=== PATIENT | female | born 1930 | race Caucasian/White ===

== ENCOUNTER 2016-08-28 11:04 | Inpatient (IN) | payer OTHER ==
[~2016-08-28] VITALS: Ht 154.9 cm; Wt 61.2 kg
[2016-08-28 11:04] VITALS: BP_SYST 196
[2016-08-28 11:30] LABS: BASOPHILS # (AUTO) 0.1 K/uL (0.0-0.2); EOSINOPHILS # (AUTO) 0.1 K/uL (0.0-0.4); HEMOGLOBIN 11.9 g/dL (12.0-16.0); MEAN CORPUSCULAR HGB CONC 34 % (32-36); WHITE BLOOD COUNT (AUTO) 8.4 K/uL (4.8-10.8)
[2016-08-28 11:33] LABS: BASOPHILS % (AUTO) 0.7 % (0.0-2.0); EOSINOPHILS % (AUTO) 0.6 % (0.0-4.0); HEMATOCRIT 35.6 % (36-48); LYMPHOCYTES % (AUTO) 23.8 % (20.5-51.5); MEAN CORPUSCULAR HEMOGLOBIN 31 pg (27-31); MEAN CORPUSCULAR VOLUME 91 fL (79.0-98.0); MONOCYTES # (AUTO) 0.4 K/uL (0.0-1.0); MONOCYTES % (AUTO) 4.5 % (1.7-9.3); NEUTROPHILS # (AUTO) 5.8 K/uL (1.8-7.7); NEUTROPHILS % (AUTO) 70.4 % (40.0-70.0); PLATELET COUNT (AUTO) 302 K/uL (130-430); RED BLOOD CELL COUNT(AUTO) 3.91 MIL/uL (4.2-6.2); RED CELL DISTRIBUTION WIDTH 13.3 % (9.0-15.0)
[2016-08-28 11:37] LABS: ANION GAP 5 (5-15); CALCIUM 9.6 mg/dL (8.4-11.0); CHLORIDE 110 mmol/L (98-107); CREATININE 0.73 mg/dL (0.55-1.30); GLUCOSE 139 mg/dL (70-99); POTASSIUM 4.1 mmol/L (3.5-5.1); SODIUM SERUM 144 mmol/L (136-145); UREA NITROGEN, BLOOD 14 mg/dL (8-21)
[2016-08-28 11:39] LABS: PROTHROMBIN TIME 10.8 SECS (9.5-12.5)
[2016-08-28 11:42] LABS: ALANINE AMINOTRANSFERASE 22 U/L (12-78); ALBUMIN 4.1 g/dL (3.4-4.8); ASPARTATE AMINOTRANSFERASE 14 U/L (10-37); CREATINE KINASE, TOTAL 57 U/L (26-192); SALICYLATE 1 mg/dL (3-30); TOTAL BILIRUBIN 0.4 mg/dL (0.0-1.0); TOTAL PROTEIN, SERUM 7.7 g/dL (6.4-8.3)
[2016-08-28 11:43] LABS: ACETAMINOPHEN < 1 ug/mL (1-30); ALCOHOL, BLOOD < 3 mg/dL (<10)
[2016-08-28] MEDS ORDERED: ASPIRIN 81 MG TAB.CHEW PO ONE (12:00)
[2016-08-28] MEDS ORDERED: ACETAMINOPHEN 500 MG TABLET PO ONE (12:15)
[2016-08-28] MEDS ORDERED: VALS40TA11 PO (12:18)
[2016-08-28] MEDS ORDERED: AMAN100C16 PO (12:18)
[2016-08-28] MEDS ORDERED: ACETAMINOPHEN 500 MG TABLET ONE (12:21)
[2016-08-28 12:22] LABS: BILIRUBIN,URINE NEGATIVE (NEGATIVE); CLARITY/URINE CLEAR (CLEAR); COLOR,URINE YELLOW (YELLOW); GLUCOSE,URINE NEGATIVE (NEGATIVE); KETONES,URINE NEGATIVE (NEGATIVE); LEUKOCYTE ESTERASE ,URINE 1+ (NEGATIVE); NITRITE, URINE NEGATIVE (NEGATIVE); PROTEIN URINE NEGATIVE (NEGATIVE); UROBILINOGEN,URINE 0.2 (0.2-1.0)
[2016-08-28 12:25] LABS: BLOOD, URINE TRACE (NEGATIVE)
[2016-08-28 12:30] LABS: RBC,URINE 0-3 /HPF (0-3)
[2016-08-28 12:31] LABS: BACTERIA,URINE FEW /HPF (None Seen); MUCUS,URINE 1+ /LPF (None Seen)
[2016-08-28] MEDS ORDERED: ALPRAZolam 0.25 MG TABLET ONE (13:43)
[2016-08-28] MEDS ORDERED: ALPRAZolam 0.25 MG TABLET PO ONE (13:45)
[2016-08-28] MEDS ORDERED: cloNIDine HCL 0.1 MG TABLET PO ONE (13:45)
[2016-08-28 13:51] VITALS: BP_SYST 152
[2016-08-28 14:01] VITALS: BP_SYST 129
[2016-08-28] MEDS ORDERED: VALSARTAN 80 MG TABLET (DIOVAN) PO SCH (15:15)
[2016-08-28] MEDS ORDERED: LEVOFLOXACIN 500 MG/D5W 100 ML IV ONE (15:15)
[2016-08-28] MEDS ORDERED: ALPRAZolam 0.25 MG TABLET PO PRN (15:30)
[2016-08-28] MEDS ORDERED: KETOROLAC TROMETHAMINE 15 MG VIAL IVP PRN (15:30)
[2016-08-28] MEDS ORDERED: cloNIDine HCL 0.1 MG TABLET PO PRN (15:30)
[2016-08-28] MEDS ORDERED: ACETAMINOPHEN 325 MG TABLET PO PRN (15:45)
[2016-08-28] MEDS ORDERED: cefTRIAXone 1 GM in D5W 50 ML IV SCH (16:00)
[2016-08-29] MEDS ORDERED: ASPIRIN 81 MG TABLET(ECOTRIN) PO SCH (09:00)
[2016-08-29] MEDS ORDERED: AMANTADINE HCL 100 MG CAP PO SCH (09:00)
[2016-08-29] MEDS ORDERED: PANTOPRAZOLE SODIUM 40 MG TAB PO SCH (09:00)
== END 2016-08-28 19:15 | disposition left against medical advice (07) | DRG 69 ==
LOC: SED 11:04 → STU 12:30
PROVIDERS: ADMIT Internal Medicine; ATTEND Internal Medicine
DX: G45.9 Transient cerebral ischemic attack, unspecified (principal); N39.0 Urinary tract infection, site not specified; I10 Essential (primary) hypertension; G20 Parkinson's disease; F03.90 Unspecified dementia, unspecified severity, without behavioral disturbance, psychotic disturbance, mood disturbance, and anxiety; E11.9 Type 2 diabetes mellitus without complications; Z53.21 Procedure and treatment not carried out due to patient leaving prior to being seen by health care provider; Z79.899 Other long term (current) drug therapy
CPT/HCPCS: 36415; 70450-TC; 71010; 80053; 81000-TC; 82550-TC; 84484; 85025; 85610-TC; 85730-TC; 87086; 93005; 99285; G0480; G0481; G0482; J0696; J1885; J1956; J7060

== ENCOUNTER 2016-09-30 10:38 | Emergency (ER) | payer OTHER ==
[~2016-09-30] VITALS: Ht 152.4 cm; Wt 59.0 kg
[~2016-09-30 10:38] MED LIST: AMAN100C16 PO; VALS40TA11 PO
[2016-09-30 10:45] VITALS: BP_SYST 151
[2016-09-30] MEDS ORDERED: NACL 0.9% 1,000 ML IV ONE (11:01)
[2016-09-30 11:16] LABS: BASOPHILS % (AUTO) 0.5 % (0.0-2.0); EOSINOPHILS # (AUTO) 0.1 K/uL (0.0-0.4); EOSINOPHILS % (AUTO) 1.8 % (0.0-4.0); HEMATOCRIT 37.6 % (36-48); HEMOGLOBIN 12.3 g/dL (12.0-16.0); LYMPHOCYTES % (AUTO) 26.6 % (20.5-51.5); MEAN CORPUSCULAR HEMOGLOBIN 30 pg (27-31); MEAN CORPUSCULAR HGB CONC 33 % (32-36); MEAN CORPUSCULAR VOLUME 92 fL (79.0-98.0); MONOCYTES # (AUTO) 0.5 K/uL (0.0-1.0); NEUTROPHILS % (AUTO) 64.1 % (40.0-70.0); PLATELET COUNT (AUTO) 258 K/uL (130-430); RED BLOOD CELL COUNT(AUTO) 4.08 MIL/uL (4.2-6.2); RED CELL DISTRIBUTION WIDTH 13.1 % (9.0-15.0); WHITE BLOOD COUNT (AUTO) 7.6 K/uL (4.8-10.8)
[2016-09-30 11:39] LABS: ANION GAP 5 (5-15); CALCIUM 9.5 mg/dL (8.4-11.0); CHLORIDE 105 mmol/L (98-107); CREATININE 0.96 mg/dL (0.55-1.30); GLUCOSE 176 mg/dL (70-99); POTASSIUM 3.6 mmol/L (3.5-5.1); SODIUM SERUM 142 mmol/L (136-145); UREA NITROGEN, BLOOD 23 mg/dL (8-21)
[2016-09-30 11:44] LABS: ALANINE AMINOTRANSFERASE 24 U/L (12-78); ALBUMIN 3.5 g/dL (3.4-4.8); ASPARTATE AMINOTRANSFERASE 14 U/L (10-37); LIPASE 100 U/L (73-393); TOTAL BILIRUBIN 0.3 mg/dL (0.0-1.0)
[2016-09-30] MEDS ORDERED: NA PHOS,M-B/NA PHOS,DI-BA 118 ML (FLEET ENEMA) RC ONE (12:30)
[2016-09-30 13:44] VITALS: BP_SYST 142
== END 2016-09-30 13:44 | disposition home or self-care (01) ==
LOC: SED 10:38
DX: K59.00 Constipation, unspecified (principal); I10 Essential (primary) hypertension; E11.9 Type 2 diabetes mellitus without complications; G20 Parkinson's disease; Z79.899 Other long term (current) drug therapy
CPT/HCPCS: 36415; 74176; 80053; 82272; 83690; 85025; 96360; 99285; J7030

== ENCOUNTER 2017-03-04 10:37 | Inpatient (IN) | payer OTHER ==
[~2017-03-04] VITALS: Ht 154.9 cm; Wt 65.3 kg
[2017-03-04 10:37] VITALS: BP_SYST 128
[2017-03-04] MEDS ORDERED: NACL 0.9% 1,000 ML IV ONE (11:15)
[2017-03-04 11:23] LABS: BILIRUBIN,URINE NEGATIVE (NEGATIVE); BLOOD, URINE NEGATIVE (NEGATIVE); CLARITY/URINE SL HAZY (CLEAR); COLOR,URINE YELLOW (YELLOW); GLUCOSE,URINE NEGATIVE (NEGATIVE); KETONES,URINE NEGATIVE (NEGATIVE); LEUKOCYTE ESTERASE ,URINE NEGATIVE (NEGATIVE); NITRITE, URINE NEGATIVE (NEGATIVE); PROTEIN URINE NEGATIVE (NEGATIVE); UROBILINOGEN,URINE 0.2 (0.2-1.0)
[2017-03-04 11:33] LABS: ANION GAP 5 (5-15); CALCIUM 10.3 mg/dL (8.4-11.0); CHLORIDE 104 mmol/L (98-107); CREATININE 1.05 mg/dL (0.55-1.30); GLUCOSE 146 mg/dL (70-99); SODIUM SERUM 140 mmol/L (136-145); UREA NITROGEN, BLOOD 26 mg/dL (8-21)
[2017-03-04 11:34] LABS: BASOPHILS # (AUTO) 0.1 K/uL (0.0-0.2); BASOPHILS % (AUTO) 0.5 % (0.0-2.0); EOSINOPHILS # (AUTO) 0.2 K/uL (0.0-0.4); EOSINOPHILS % (AUTO) 1.4 % (0.0-4.0); HEMATOCRIT 39.2 % (36-48); LYMPHOCYTES # (AUTO) 2.3 K/uL (1.0-5.5); LYMPHOCYTES % (AUTO) 20.5 % (20.5-51.5); MEAN CORPUSCULAR HEMOGLOBIN 31 pg (27-31); MEAN CORPUSCULAR HGB CONC 33 % (32-36); MEAN CORPUSCULAR VOLUME 92 fL (79.0-98.0); MONOCYTES # (AUTO) 0.8 K/uL (0.0-1.0); MONOCYTES % (AUTO) 7.1 % (1.7-9.3); NEUTROPHILS % (AUTO) 70.5 % (40.0-70.0); PLATELET COUNT (AUTO) 265 K/uL (130-430); RED BLOOD CELL COUNT(AUTO) 4.25 MIL/uL (4.2-6.2); RED CELL DISTRIBUTION WIDTH 12.7 % (9.0-15.0); WHITE BLOOD COUNT (AUTO) 11.4 K/uL (4.8-10.8)
[2017-03-04 11:36] LABS: PROTHROMBIN TIME 10.4 SECS (9.5-12.5)
[2017-03-04] MEDS ORDERED: MAGNESIUM SULFATE 50 ML IV ONE (11:45)
[2017-03-04] MEDS ORDERED: POTASSIUM CHLORIDE 40 MEQ in NS 250 ML IV ONE (11:45)
[2017-03-04] MEDS ORDERED: POTASSIUM CHLORIDE 20 MEQ TAB.PRT.SR PO ONE (11:45)
[2017-03-04 11:48] LABS: ALANINE AMINOTRANSFERASE 21 U/L (12-78); ALBUMIN 3.3 g/dL (3.4-4.8); ASPARTATE AMINOTRANSFERASE 15 U/L (10-37); TOTAL BILIRUBIN 0.4 mg/dL (0.0-1.0)
[2017-03-04 11:54] LABS: POTASSIUM 2.7 mmol/L (3.5-5.1)
[2017-03-04] MEDS ORDERED: KETOROLAC TROMETHAMINE 30 MG VIAL IVP ONE (12:30)
[2017-03-04] MEDS ORDERED: ONDANSETRON HCL 4 MG/2 ML VIAL IVP ONE (12:30)
[2017-03-04] MEDS ORDERED: fentaNYL CITRATE/PF 100 MCG/2 ML AMP IVP ONE (12:30)
[2017-03-04] MEDS ORDERED: VALS1TAB80 PO (13:14)
[2017-03-04 14:00] VITALS: BP_SYST 129
[2017-03-04 14:24] VITALS: BP_SYST 129
[2017-03-04] MEDS ORDERED: ONDANSETRON HCL 4 MG/2 ML VIAL IVP PRN (17:15)
[2017-03-04] MEDS ORDERED: FAMOTIDINE 20 MG TABLET PO ONE (18:30)
[2017-03-04] MEDS: MORPHINE 2 MG/ML INJ. SYRINGE IVP PRN (18:37)
[2017-03-04 20:56] VITALS: BP_SYST 115
[2017-03-05] VITALS (17 sets, daily range): BP systolic 134–235
[2017-03-05] MEDS: FLU VACC QS 2017-18(36MOS+)/PF 0.5 ML/SYR SYRINGE I.M. PRN (00:10)
[2017-03-05 01:15] LABS: BILIRUBIN,URINE NEGATIVE (NEGATIVE); BLOOD, URINE 3+ (NEGATIVE); CLARITY/URINE CLOUDY (CLEAR); COLOR,URINE YELLOW (YELLOW); GLUCOSE,URINE TRACE (NEGATIVE); KETONES,URINE NEGATIVE (NEGATIVE); LEUKOCYTE ESTERASE ,URINE 1+ (NEGATIVE); NITRITE, URINE NEGATIVE (NEGATIVE); PH,URINE 5.5 (5.0-8.0); PROTEIN URINE NEGATIVE (NEGATIVE); UROBILINOGEN,URINE 0.2 (0.2-1.0)
[2017-03-05 01:21] LABS: BACTERIA,URINE MODERATE /HPF (None Seen)
[2017-03-05] MEDS: MORPHINE 2 MG/ML INJ. SYRINGE IVP PRN (04:44)
[2017-03-05 06:34] LABS: BASOPHILS % (AUTO) 0.1 % (0.0-2.0); EOSINOPHILS # (AUTO) 0.2 K/uL (0.0-0.4); EOSINOPHILS % (AUTO) 2.1 % (0.0-4.0); HEMATOCRIT 39.1 % (36-48); HEMOGLOBIN 13.4 g/dL (12.0-16.0); LYMPHOCYTES # (AUTO) 2.1 K/uL (1.0-5.5); LYMPHOCYTES % (AUTO) 19.8 % (20.5-51.5); MEAN CORPUSCULAR HEMOGLOBIN 32 pg (27-31); MEAN CORPUSCULAR HGB CONC 34 % (32-36); MEAN CORPUSCULAR VOLUME 93 fL (79.0-98.0); MONOCYTES # (AUTO) 0.9 K/uL (0.0-1.0); MONOCYTES % (AUTO) 8.8 % (1.7-9.3); NEUTROPHILS # (AUTO) 7.5 K/uL (1.8-7.7); NEUTROPHILS % (AUTO) 69.2 % (40.0-70.0); PLATELET COUNT (AUTO) 232 K/uL (130-430); RED CELL DISTRIBUTION WIDTH 12.8 % (9.0-15.0); WHITE BLOOD COUNT (AUTO) 10.7 K/uL (4.8-10.8)
[2017-03-05 06:39] LABS: ALANINE AMINOTRANSFERASE 22 U/L (12-78); ALBUMIN 3.4 g/dL (3.4-4.8); ANION GAP 6 (5-15); ASPARTATE AMINOTRANSFERASE 15 U/L (10-37); CALCIUM 9.7 mg/dL (8.4-11.0); CHLORIDE 109 mmol/L (98-107); CREATININE 0.88 mg/dL (0.55-1.30); GLUCOSE 124 mg/dL (70-99); POTASSIUM 4.1 mmol/L (3.5-5.1); SODIUM SERUM 140 mmol/L (136-145); TOTAL BILIRUBIN 0.4 mg/dL (0.0-1.0); UREA NITROGEN, BLOOD 26 mg/dL (8-21)
[2017-03-05] MEDS ORDERED: DIPHENHYDRAMINE INJ 50 MG/ML VIAL IM ONE (06:45)
[2017-03-05] MEDS ORDERED: ENALAPRILAT DIHYDRATE 1.25 MG/ML VIAL IVP ONE ×2 (06:45→16:45)
[2017-03-05] MEDS ORDERED: FAMOTIDINE 20 MG TABLET PO SCH (09:00)
[2017-03-05] MEDS ORDERED: KETOROLAC TROMETHAMINE 10 MG TABLET (TORADOL) PO PRN (10:00)
[2017-03-05] MEDS ORDERED: POTASSIUM CHLORIDE 10 MEQ in 0.45% NACL 1,000 ML IV SCH (13:00)
[2017-03-05] MEDS: AMOXICILLIN 250 MG/5 ML, 150 ML BTL PO SCH ×2 (14:30→21:59)
[2017-03-05] MEDS ORDERED: LORazepam 2 MG/ML VIAL ONE (15:43)
[2017-03-05] MEDS ORDERED: LORazepam 2 MG/ML VIAL IVP ONE (16:00)
[2017-03-05] MEDS ORDERED: ENALAPRILAT DIHYDRATE 1.25 MG/ML VIAL ONE (16:52)
[2017-03-05] MEDS ORDERED: CARBIDOPA/LEVODOPA 25/100 MG TABLET PO SCH (17:00)
[2017-03-05] MEDS ORDERED: METOPROLOL TARTRATE 5 MG/5 ML VIAL ONE (19:39)
[2017-03-05] MEDS: D5/0.45 NS 1,000 ML IV SCH (19:43)
[2017-03-05] MEDS: METOPROLOL TARTRATE 5 MG/5 ML VIAL IVP SCH (19:56)
[2017-03-06] VITALS (19 sets, daily range): BP systolic 80–179
[2017-03-06] MEDS: METOPROLOL TARTRATE 5 MG/5 ML VIAL IVP SCH ×5 (02:00→20:26)
[2017-03-06] MEDS: AMOXICILLIN 250 MG/5 ML, 150 ML BTL PO SCH ×3 (06:00→21:15)
[2017-03-06] MEDS: D5/0.45 NS 1,000 ML IV SCH ×2 (06:33→18:02)
[2017-03-06 06:35] LABS: ANION GAP 5 (5-15); CALCIUM 8.6 mg/dL (8.4-11.0); CHLORIDE 110 mmol/L (98-107); CREATININE 0.79 mg/dL (0.55-1.30); GLUCOSE 165 mg/dL (70-99); POTASSIUM 3.6 mmol/L (3.5-5.1); SODIUM SERUM 141 mmol/L (136-145); UREA NITROGEN, BLOOD 16 mg/dL (8-21)
[2017-03-06] MEDS: FLU VACC QS 2017-18(36MOS+)/PF 0.5 ML/SYR SYRINGE I.M. PRN (07:16)
[2017-03-06] MEDS ORDERED: FAMOTIDINE PF 20 MG/2 ML VIAL IVP ONE (08:15)
[2017-03-06] MEDS ORDERED: KETOROLAC TROMETHAMINE 15 MG VIAL IVP ONE (08:15)
[2017-03-06] MEDS ORDERED: KETOROLAC TROMETHAMINE 15 MG VIAL IVP PRN (16:30)
[2017-03-06] MEDS ORDERED: KETOROLAC TROMETHAMINE 15 MG VIAL ONE (16:36)
[2017-03-07] VITALS (7 sets, daily range): BP systolic 101–190
[2017-03-07] MEDS: METOPROLOL TARTRATE 5 MG/5 ML VIAL IVP SCH ×4 (01:10→21:45)
[2017-03-07] MEDS: ACETAMINOPHEN 325 MG TABLET PO PRN (05:07)
[2017-03-07] MEDS: AMOXICILLIN 250 MG/5 ML, 150 ML BTL PO SCH ×3 (05:17→21:45)
[2017-03-07] MEDS: D5/0.45 NS 1,000 ML IV SCH (05:24)
[2017-03-07 06:26] LABS: BASOPHILS % (AUTO) 0.3 % (0.0-2.0); EOSINOPHILS # (AUTO) 0.3 K/uL (0.0-0.4); EOSINOPHILS % (AUTO) 3.1 % (0.0-4.0); HEMATOCRIT 34.4 % (36-48); HEMOGLOBIN 11.3 g/dL (12.0-16.0); LYMPHOCYTES # (AUTO) 1.8 K/uL (1.0-5.5); LYMPHOCYTES % (AUTO) 20.5 % (20.5-51.5); MEAN CORPUSCULAR HEMOGLOBIN 31 pg (27-31); MEAN CORPUSCULAR HGB CONC 33 % (32-36); MEAN CORPUSCULAR VOLUME 93 fL (79.0-98.0); MONOCYTES # (AUTO) 0.6 K/uL (0.0-1.0); MONOCYTES % (AUTO) 6.6 % (1.7-9.3); NEUTROPHILS # (AUTO) 6.2 K/uL (1.8-7.7); NEUTROPHILS % (AUTO) 69.5 % (40.0-70.0); PLATELET COUNT (AUTO) 208 K/uL (130-430); RED CELL DISTRIBUTION WIDTH 12.8 % (9.0-15.0); WHITE BLOOD COUNT (AUTO) 8.9 K/uL (4.8-10.8)
[2017-03-07 07:07] LABS: ALANINE AMINOTRANSFERASE 18 U/L (12-78); ALBUMIN 2.8 g/dL (3.4-4.8); ANION GAP 6 (5-15); ASPARTATE AMINOTRANSFERASE 14 U/L (10-37); CALCIUM 8.7 mg/dL (8.4-11.0); CHLORIDE 109 mmol/L (98-107); CREATININE 0.71 mg/dL (0.55-1.30); GLUCOSE 148 mg/dL (70-99); POTASSIUM 3.2 mmol/L (3.5-5.1); SODIUM SERUM 140 mmol/L (136-145); THYROID STIMULATING HORMONE 3.01 uIu/mL (0.34-4.82); TOTAL BILIRUBIN 0.5 mg/dL (0.0-1.0); UREA NITROGEN, BLOOD 14 mg/dL (8-21)
[2017-03-07] MEDS ORDERED: POTASSIUM CHLORIDE 40 MEQ, LIDOCAINE JECT 2% PF 100 MG 50 MG in NS 250 ML IV ONE (09:00)
[2017-03-07] MEDS: KETOROLAC TROMETHAMINE 15 MG VIAL IVP PRN ×2 (09:12→18:14)
[2017-03-07] MEDS: DOCUSATE SODIUM 250 MG CAPSULE PO SCH ×2 (09:13→22:37)
[2017-03-07] MEDS: KCL 20 mEq in D5/0.45NS 1000mL 1,000 ML IV SCH (09:52)
[2017-03-07] MEDS ORDERED: amLODIPine BESYLATE 5 MG TABLET PO ONE (14:45)
[2017-03-08 00:49] VITALS: BP_SYST 133
[2017-03-08] MEDS: KCL 20 mEq in D5/0.45NS 1000mL 1,000 ML IV SCH ×2 (02:27→17:02)
[2017-03-08] MEDS: METOPROLOL TARTRATE 5 MG/5 ML VIAL IVP SCH ×4 (02:35→19:02)
[2017-03-08] MEDS: AMOXICILLIN 250 MG/5 ML, 150 ML BTL PO SCH (06:00)
[2017-03-08 06:11] LABS: BASOPHILS % (AUTO) 0.3 % (0.0-2.0); EOSINOPHILS # (AUTO) 0.2 K/uL (0.0-0.4); HEMATOCRIT 39.7 % (36-48); HEMOGLOBIN 13.6 g/dL (12.0-16.0); LYMPHOCYTES # (AUTO) 1.2 K/uL (1.0-5.5); LYMPHOCYTES % (AUTO) 12.2 % (20.5-51.5); MEAN CORPUSCULAR HEMOGLOBIN 32 pg (27-31); MEAN CORPUSCULAR HGB CONC 34 % (32-36); MEAN CORPUSCULAR VOLUME 92 fL (79.0-98.0); MONOCYTES # (AUTO) 0.7 K/uL (0.0-1.0); MONOCYTES % (AUTO) 7.1 % (1.7-9.3); NEUTROPHILS # (AUTO) 7.9 K/uL (1.8-7.7); NEUTROPHILS % (AUTO) 78.4 % (40.0-70.0); PLATELET COUNT (AUTO) 234 K/uL (130-430); RED CELL DISTRIBUTION WIDTH 12.7 % (9.0-15.0)
[2017-03-08 06:13] LABS: ANION GAP 8 (5-15); CHLORIDE 109 mmol/L (98-107); CREATININE 0.61 mg/dL (0.55-1.30); GLUCOSE 163 mg/dL (70-99); POTASSIUM 3.6 mmol/L (3.5-5.1); SODIUM SERUM 139 mmol/L (136-145); UREA NITROGEN, BLOOD 10 mg/dL (8-21)
[2017-03-08 08:00] VITALS: BP_SYST 159
[2017-03-08] MEDS: DOCUSATE SODIUM 250 MG CAPSULE PO SCH ×2 (08:43→20:22)
[2017-03-08] MEDS ORDERED: amLODIPine BESYLATE 5 MG TABLET PO SCH (09:00)
[2017-03-08 12:19] VITALS: BP_SYST 147
[2017-03-08 14:35] VITALS: BP_SYST 207
[2017-03-08] MEDS ORDERED: amLODIPine BESYLATE 5 MG TABLET PO ONE (14:45)
[2017-03-08] MEDS ORDERED: amLODIPine BESYLATE 5 MG TABLET ONE (14:46)
[2017-03-08 16:24] VITALS: BP_SYST 169
[2017-03-08 19:55] VITALS: BP_SYST 163
[2017-03-08] MEDS: KETOROLAC TROMETHAMINE 15 MG VIAL IVP PRN (23:06)
[2017-03-09] VITALS (7 sets, daily range): BP systolic 103–165
[2017-03-09] MEDS: METOPROLOL TARTRATE 5 MG/5 ML VIAL IVP SCH ×4 (02:50→20:00)
[2017-03-09] MEDS: KETOROLAC TROMETHAMINE 15 MG VIAL IVP PRN (04:58)
[2017-03-09 08:15] LABS: ANION GAP 5 (5-15); CALCIUM 8.9 mg/dL (8.4-11.0); CHLORIDE 109 mmol/L (98-107); CREATININE 0.98 mg/dL (0.55-1.30); GLUCOSE 174 mg/dL (70-99); POTASSIUM 3.7 mmol/L (3.5-5.1); SODIUM SERUM 141 mmol/L (136-145); UREA NITROGEN, BLOOD 17 mg/dL (8-21)
[2017-03-09] MEDS: DOCUSATE SODIUM 250 MG CAPSULE PO SCH ×2 (09:09→21:00)
[2017-03-09] MEDS: KCL 20 mEq in D5/0.45NS 1000mL 1,000 ML IV SCH (09:09)
[2017-03-09] MEDS ORDERED: LOSARTAN POTASSIUM 50 MG TABLET (COZAAR) PO ONE (11:45)
[2017-03-09] MEDS ORDERED: NITROGLYCERIN 0.4 MG TAB.SUBL SL PRN (13:45)
[2017-03-09] MEDS ORDERED: IBUPROFEN 200 MG TABLET PO PRN (14:15)
[2017-03-09] MEDS ORDERED: IBUPROFEN 400 MG TABLET ONE (14:24)
[2017-03-09] MEDS: ACETAMINOPHEN 325 MG TABLET PO PRN (22:27)
[2017-03-10] MEDS: METOPROLOL TARTRATE 5 MG/5 ML VIAL IVP SCH ×2 (01:34→08:00)
[2017-03-10] MEDS ORDERED: IBUPROFEN 400 MG TABLET ONE (03:55)
[2017-03-10] MEDS: IBUPROFEN 200 MG TABLET PO PRN ×2 (03:57→16:31)
[2017-03-10 04:00] VITALS: BP_SYST 189
[2017-03-10 06:56] VITALS: BP_SYST 152
[2017-03-10] MEDS: DOCUSATE SODIUM 250 MG CAPSULE PO SCH (09:11)
[2017-03-10] MEDS: FAMOTIDINE 20 MG TABLET PO SCH (09:11)
[2017-03-10] MEDS: LOSARTAN POTASSIUM 50 MG TABLET (COZAAR) PO SCH (09:12)
[2017-03-10 12:16] VITALS: BP_SYST 152
[2017-03-10 16:07] VITALS: BP_SYST 130
[2017-03-10] MEDS: KCL 20 mEq in 0.45% NS 1000 mL 1,000 ML IV SCH (18:11)
[2017-03-10 20:00] VITALS: BP_SYST 139
[2017-03-10 20:42] VITALS: BP_SYST 139
[2017-03-11 00:34] VITALS: BP_SYST 128
[2017-03-11] MEDS: ACETAMINOPHEN 325 MG TABLET PO PRN ×2 (01:52→01:53)
[2017-03-11 06:31] LABS: BASOPHILS # (AUTO) 0.1 K/uL (0.0-0.2); BASOPHILS % (AUTO) 0.4 % (0.0-2.0); EOSINOPHILS # (AUTO) 0.2 K/uL (0.0-0.4); EOSINOPHILS % (AUTO) 1.9 % (0.0-4.0); HEMATOCRIT 31.3 % (36-48); HEMOGLOBIN 10.3 g/dL (12.0-16.0); LYMPHOCYTES # (AUTO) 1.4 K/uL (1.0-5.5); LYMPHOCYTES % (AUTO) 10.8 % (20.5-51.5); MEAN CORPUSCULAR HEMOGLOBIN 31 pg (27-31); MEAN CORPUSCULAR HGB CONC 33 % (32-36); MEAN CORPUSCULAR VOLUME 93 fL (79.0-98.0); MONOCYTES # (AUTO) 0.9 K/uL (0.0-1.0); MONOCYTES % (AUTO) 7.2 % (1.7-9.3); NEUTROPHILS # (AUTO) 10.2 K/uL (1.8-7.7); NEUTROPHILS % (AUTO) 79.7 % (40.0-70.0); PLATELET COUNT (AUTO) 226 K/uL (130-430); RED BLOOD CELL COUNT(AUTO) 3.37 MIL/uL (4.2-6.2); RED CELL DISTRIBUTION WIDTH 13.5 % (9.0-15.0); WHITE BLOOD COUNT (AUTO) 12.8 K/uL (4.8-10.8)
[2017-03-11 06:32] LABS: ANION GAP 10 (5-15); CALCIUM 8.6 mg/dL (8.4-11.0); CHLORIDE 113 mmol/L (98-107); CREATININE 0.66 mg/dL (0.55-1.30); GLUCOSE 130 mg/dL (70-99); POTASSIUM 3.6 mmol/L (3.5-5.1); SODIUM SERUM 145 mmol/L (136-145); UREA NITROGEN, BLOOD 18 mg/dL (8-21)
[2017-03-11 06:42] LABS: ALANINE AMINOTRANSFERASE 15 U/L (12-78); ALBUMIN 2.3 g/dL (3.4-4.8); ASPARTATE AMINOTRANSFERASE 12 U/L (10-37); TOTAL BILIRUBIN 0.4 mg/dL (0.0-1.0)
[2017-03-11 07:34] VITALS: BP_SYST 159
[2017-03-11] MEDS: DOCUSATE SODIUM 250 MG CAPSULE PO SCH ×2 (08:17→21:03)
[2017-03-11] MEDS: LOSARTAN POTASSIUM 50 MG TABLET (COZAAR) PO SCH (08:17)
[2017-03-11] MEDS: FAMOTIDINE 20 MG TABLET PO SCH (08:17)
[2017-03-11] MEDS ORDERED: cefTRIAXone 1 GM in D5W 50 ML IV ONE (12:00)
[2017-03-11 12:10] VITALS: BP_SYST 159
[2017-03-11] MEDS: IBUPROFEN 200 MG TABLET PO PRN ×2 (13:24→21:03)
[2017-03-11] MEDS: KCL 20 mEq in 0.45% NS 1000 mL 1,000 ML IV SCH ×2 (14:52→18:09)
[2017-03-11] MEDS: IPRATROPIUM/ALBUTEROL SULFATE 3 ML AMPUL.NEB (DUONEB) INH SCH ×2 (15:50→23:26)
[2017-03-11 16:28] VITALS: BP_SYST 159
[2017-03-11 16:35] VITALS: BP_SYST 152; BP_SYST 156
[2017-03-11 19:25] VITALS: BP_SYST 143
[2017-03-11] MEDS: guaiFENesin ER 600 MG TAB PO SCH ×2 (21:03→21:08)
[2017-03-12] VITALS (7 sets, daily range): BP systolic 111–169
[2017-03-12] MEDS: IBUPROFEN 200 MG TABLET PO PRN ×3 (05:23→14:46)
[2017-03-12 07:00] LABS: BASOPHILS % (AUTO) 0.3 % (0.0-2.0); EOSINOPHILS # (AUTO) 0.2 K/uL (0.0-0.4); EOSINOPHILS % (AUTO) 2.4 % (0.0-4.0); HEMATOCRIT 31.7 % (36-48); HEMOGLOBIN 10.6 g/dL (12.0-16.0); LYMPHOCYTES # (AUTO) 1.5 K/uL (1.0-5.5); LYMPHOCYTES % (AUTO) 17.6 % (20.5-51.5); MEAN CORPUSCULAR HEMOGLOBIN 31 pg (27-31); MEAN CORPUSCULAR HGB CONC 34 % (32-36); MEAN CORPUSCULAR VOLUME 92 fL (79.0-98.0); MONOCYTES # (AUTO) 0.7 K/uL (0.0-1.0); MONOCYTES % (AUTO) 8.4 % (1.7-9.3); NEUTROPHILS # (AUTO) 6.4 K/uL (1.8-7.7); NEUTROPHILS % (AUTO) 71.3 % (40.0-70.0); PLATELET COUNT (AUTO) 242 K/uL (130-430); RED BLOOD CELL COUNT(AUTO) 3.44 MIL/uL (4.2-6.2); RED CELL DISTRIBUTION WIDTH 13.2 % (9.0-15.0); WHITE BLOOD COUNT (AUTO) 8.8 K/uL (4.8-10.8)
[2017-03-12 07:24] LABS: ANION GAP 11 (5-15); CALCIUM 8.6 mg/dL (8.4-11.0); CHLORIDE 109 mmol/L (98-107); CREATININE 0.54 mg/dL (0.55-1.30); GLUCOSE 109 mg/dL (70-99); POTASSIUM 3.5 mmol/L (3.5-5.1); SODIUM SERUM 142 mmol/L (136-145); UREA NITROGEN, BLOOD 13 mg/dL (8-21)
[2017-03-12] MEDS: IPRATROPIUM/ALBUTEROL SULFATE 3 ML AMPUL.NEB (DUONEB) INH SCH ×2 (07:25→15:38)
[2017-03-12] MEDS: ACETAMINOPHEN 325 MG TABLET PO PRN (08:27)
[2017-03-12] MEDS: guaiFENesin ER 600 MG TAB PO SCH (08:33)
[2017-03-12] MEDS: DOCUSATE SODIUM 250 MG CAPSULE PO SCH (08:33)
[2017-03-12] MEDS: LOSARTAN POTASSIUM 50 MG TABLET (COZAAR) PO SCH (08:34)
[2017-03-12] MEDS: FAMOTIDINE 20 MG TABLET PO SCH (08:34)
[2017-03-12] MEDS ORDERED: cefTRIAXone 1 GM in D5W 50 ML IV SCH (09:00)
[2017-03-12] MEDS: KCL 20 mEq in 0.45% NS 1000 mL 1,000 ML IV SCH (10:28)
[2017-03-12] MEDS ORDERED: LOSARTAN POTASSIUM 25 MG TABLET PO ONE (16:30)
[2017-03-12] MEDS ORDERED: LOSARTAN POTASSIUM 25 MG TABLET ONE (16:31)
== END 2017-03-12 18:46 | DRG 542 ==
LOC: SED 10:37 → SMU 13:46 → STU 03-05 07:48 → SIC 03-05 15:42 → STU 03-06 14:40 → SMU 03-08 10:33 → STU 03-08 19:13
PROVIDERS: ADMIT Internal Medicine; ATTEND Internal Medicine
DX: M80.08XA Age-related osteoporosis with current pathological fracture, vertebra(e), initial encounter for fracture (principal); J18.9 Pneumonia, unspecified organism; G20 Parkinson's disease; E86.0 Dehydration; N39.0 Urinary tract infection, site not specified; M41.9 Scoliosis, unspecified; J20.9 Acute bronchitis, unspecified; J98.11 Atelectasis; W18.39XA Other fall on same level, initial encounter; E87.6 Hypokalemia; I10 Essential (primary) hypertension; R73.03 Prediabetes; Y93.89 Activity, other specified; Y92.098 Other place in other non-institutional residence as the place of occurrence of the external cause; Y99.8 Other external cause status
CPT/HCPCS: 36415; 36600; 70450-TC; 71045; 72080-TC; 72128; 72131; 72170-TC; 80048; 80053; 81000-TC; 81003; 82306; 82607; 82803-TC; 82962; 83735-TC; 83880; 84443-TC; 85025; 85610-TC; 85730-TC; 87040-TC; 87070-TC; 87081; 87086; 87205-TC; 92610-GN; 93005; 94640; 94668; 94760; 96361; 96365; 96375; 96379; 97110-GP; 97530-GP; 99285; G0378; J0696; J1200; J1885; J2060; J2270; J2405; J3010; J3475; J3480; J3490; J7030; J7050; J7060; Q2037